=== PATIENT | male | born 1950 | race Caucasian/White ===

== ENCOUNTER 2022-12-17 12:23 | Observation (INO) ==
[2022-12-17] MEDS ORDERED: DILAUDID INJ IVP PRN (15:18)
[2022-12-17] MEDS ORDERED: ZOFRAN INJ 4 MG VIAL IVP PRN (15:18)
[2022-12-17 15:39] VITALS: BMI 27.9
[2022-12-17 15:42] LABS: BASOPHILS # (AUTO) 0.1 X10^3/uL (0.0-0.1); BASOPHILS % (AUTO) 0.8 % (0.2-1.0); EOSINOPHILS # (AUTO) 0.3 x10^3/uL (0.0-0.2); EOSINOPHILS % (AUTO) 3.5 % (0.9-2.9); HEMATOCRIT 38.4 % (42.0-54.0); HEMOGLOBIN 13.4 g/dL (13.5-18.0); LYMPHOCYTES # (AUTO) 1.7 X10^3/uL (1.3-2.9); MEAN CORPUSCULAR HEMOGLOBIN 29.6 pg (27.0-34.0); MEAN CORPUSCULAR VOLUME 84.5 fL (80.0-100.0); MEAN PLATELET VOLUME 8.1 fL (7.4-11.0); MONOCYTES # (AUTO) 0.5 x10^3/uL (0.3-0.8); MONOCYTES % (AUTO) 6.7 % (0.0-13.0); NEUTROPHILS # (AUTO) 5.1 x10^3/uL (2.2-4.8); PLATELET COUNT 179 X10^3/uL (150.0-450.0); RED BLOOD COUNT 4.54 X10^6/uL (4.7-6.0); RED CELL DISTRIBUTION WIDTH 13.7 % (11.6-16.5); WHITE BLOOD COUNT 7.7 X10^3/uL (3.6-10.0)
[2022-12-17 15:54] LABS: ALANINE AMINOTRANSFERASE 46 Units/L (12-78); ALBUMIN 3.8 g/dL (3.4-5.0); ALKALINE PHOSPHATASE 37 Units/L (46-116); ASPARTATE AMINO TRANSFERASE 31 Units/L (15-37); BLOOD UREA NITROGEN 33 mg/dL (7-18); CALCIUM 8.9 mg/dL (8.5-10.1); CARBON DIOXIDE 23.7 mmol/L (21-32); CHLORIDE 102 mmol/L (98-107); COR NA(FOR HYPERGLY) 138 mmol/L (136-145); CREATININE 2.12 mg/dL (0.70-1.30); GLUCOSE 163 mg/dL (65-99); POTASSIUM 4.5 mmol/L (3.5-5.1); SODIUM 136 mmol/L (136-145); TOTAL PROTEIN 7.6 g/dL (6.4-8.2); eGFR NON BLACK RACES 33 (>60)
[2022-12-17] MEDS: NS 1,000 ML IV 1,000 ML IV SCH (16:45)
[2022-12-17] MEDS: FIORICET TAB PO PRN (16:55)
[2022-12-17] MEDS: LIPITOR TAB 20 MG PO SCH (22:02)
[2022-12-17] MEDS: LOPRESSOR TAB 50 MG PO SCH (22:12)
[2022-12-17] MEDS ORDERED: NovoLIN R (or HumuLIN R) SUBCUT PRN (22:54)
[2022-12-18] MEDS: NS 1,000 ML IV 1,000 ML IV SCH ×2 (03:19→19:13)
[2022-12-18] MEDS: FIORICET TAB PO PRN ×2 (04:27→20:40)
[2022-12-18 06:37] LABS: BASOPHILS % (AUTO) 0.5 % (0.2-1.0); EOSINOPHILS # (AUTO) 0.3 x10^3/uL (0.0-0.2); EOSINOPHILS % (AUTO) 3.8 % (0.9-2.9); HEMATOCRIT 36.9 % (42.0-54.0); LYMPHOCYTES # (AUTO) 1.9 X10^3/uL (1.3-2.9); LYMPHOCYTES % (AUTO) 25.2 % (21.0-51.0); MEAN CORPUSCULAR HEMOGLOBIN 29.8 pg (27.0-34.0); MEAN CORPUSCULAR HGB CONC 35.3 g/dL (33.0-35.0); MEAN CORPUSCULAR VOLUME 84.4 fL (80.0-100.0); MEAN PLATELET VOLUME 8.9 fL (7.4-11.0); MONOCYTES # (AUTO) 0.5 x10^3/uL (0.3-0.8); MONOCYTES % (AUTO) 7.1 % (0.0-13.0); NEUTROPHILS # (AUTO) 4.9 x10^3/uL (2.2-4.8); NEUTROPHILS % (AUTO) 63.4 % (42.0-75.0); PLATELET COUNT 173 X10^3/uL (150.0-450.0); RED BLOOD COUNT 4.37 X10^6/uL (4.7-6.0); RED CELL DISTRIBUTION WIDTH 13.3 % (11.6-16.5); WHITE BLOOD COUNT 7.7 X10^3/uL (3.6-10.0)
[2022-12-18 06:47] LABS: ALANINE AMINOTRANSFERASE 39 Units/L (12-78); ALBUMIN 3.5 g/dL (3.4-5.0); ALKALINE PHOSPHATASE 34 Units/L (46-116); ASPARTATE AMINO TRANSFERASE 26 Units/L (15-37); BLOOD UREA NITROGEN 31 mg/dL (7-18); CALCIUM 8.8 mg/dL (8.5-10.1); CARBON DIOXIDE 25.2 mmol/L (21-32); CHLORIDE 104 mmol/L (98-107); COR NA(FOR HYPERGLY) 140 mmol/L (136-145); CREATININE 2.09 mg/dL (0.70-1.30); GLUCOSE 130 mg/dL (65-99); POTASSIUM 4.4 mmol/L (3.5-5.1); SODIUM 139 mmol/L (136-145); TOTAL PROTEIN 7.2 g/dL (6.4-8.2); eGFR NON BLACK RACES 33 (>60)
[2022-12-18] MEDS ORDERED: PATIENT'S HOME MEDICATION (Multivitamin Tablet) PO SCH (09:00)
[2022-12-18] MEDS: LOPRESSOR TAB 50 MG PO SCH ×2 (10:25→20:40)
[2022-12-18] MEDS: ASPIRIN EC 81 MG PO SCH (10:25)
[2022-12-18] MEDS: TAB-A-VITE PO SCH (10:25)
--- NOTE | 2022-12-18 12:07 | MRI ---
EXAM:MRI BRAIN W/O IV contrastHISTORY:intractable headache -COMPARISON:CT 12/11/2022TECHNIQUE:Multiplanar multi-sequence MRI of the brain was obtained without administration of IV contrast.FINDINGS:The cerebellar tonsils are normally positioned. Pituitary gland is normal in size. The cerebral ventricles are normal in size.No areas of restricted diffusion. A few punctate foci of increased T2 signal are seen in the cerebellum and supratentorial white matter. These are probably minimal chronic small-vessel ischemic changes. No evidence of intracranial hemorrhage.Paranasal sinuses and mastoid air cells appear clear.IMPRESSION:Minimal chronic small-vessel ischemic changes are suspected without evidence of acute intracranial abnormality.THIS IS AN ELECTRONICALLY VERIFIED FINAL REPORT12/18/2022 12:03 PM - Electronically signed by Sheldon Carrion MD
--- NOTE | 2022-12-18 12:52 | DR.UPDATE ---
H&P Update Prescription drug monitoring program results: PDMP reviewed and no concerns identified H&P Reviewed: Yes Any changes to H&P?: Yes Changes noted:: WAS ADMITTED TO THE HOSPITAL OBSERVATION STATUS FOR FURTHER EVALUATION AND TREATMENT OF INTRACTABLE HEADACHE. PATIENT REPORTS THAT HIS HEADACHE INITIALLY STARTED 2-3 WEEKS AGO AND HAS BEEN PERSISTENT. HE RATED PAIN A 7/10 ON ADMISSION AND DESCRIBED IT AT [facility] AND [facility]. HE DID HAVE AN OUTPATIENT BRAIN CT WITHOUT CONTRAST WHICH ONLY REVEALED CHRONIC SMALL VESSEL ISCHEMIC CHANGES. HE WAS PRESCRIBED AUGMENTIN 875/125MG BID LAST WEEK FOR ACUTE SINUSITIS. HE BEGAN TAKING IT ON 12/14/22. HE HAS TAKEN TYLENOL AND IBUPROFEN AT HOME WITHOUT IMPROVEMENT IN HEADACHE. HIS PMH INCLUDES: DM II, PROSTATE CANCER, ANGINA, ANGIOPLASTY/STENTS, HERNIA REPAIR. ON ARRIVAL TO THE HOSPITAL, HIS VITALS WERE: 98.0-62-20-98%-170/88. LABS WERE OBTAINED. WBC 7.7, RBC 4.54, HGB 13.4, HCT 38.4, PLT COUNT 179, SODIUM 136, POTASSIUM 4.5, CHLORIDE 102, CARBON DIOXIDE 23.7, BUN 33, CREATININE 2.12, GLUCOSE 163, CALCIUM 8.9, AST 31, ALT 46, ALK PHOS 37, TOTAL PROTEIN 7.6, ALBUMIN 3.8. BRAIN MRI WAS OBTAINED AND REVEALED: The cerebellar tonsils are normally positioned. Pituitary gland is normal in size. The cerebral ventricles are normal in size.No areas of restricted diffusion. A few punctate foci of increased T2 signal are seen in the cerebellum and supratentorial white matter. These are probably minimal chronic small-vessel ischemic changes. No evidence of intracranial hemorrhage. Paranasal sinuses and mastoid air cells appear clear. HE WAS STARTED ON NORMAL SALINE AT 75 ML/HR, DILAUDID 1MG IV Q4H PRN PAIN, FIORICET 2 TABS Q8H PRN PAIN, LOVENOX 30MG SC DAILY, OTBS ACHS, HUMULIN R SLIDING SCALE, ZOFRAN 4MG IV Q4H PRN NAUSEA. HIS HOME MEDICATIONS OF AUGMENTIN, ASPIRIN, LIPITOR, TRICOR, LOPRESSOR, AND MULTIVITAMINS WERE RESUMED. OTHERWISE, WE WILL FOLLOW UP WITH AM LABS AND CONTINUE TO MONITOR. TIME SPENT ON CLINICAL ASSESSMENT, REVIEWING LABS AND IMAGING, DECISION MAKING, AND DOCUMENTATION GREATER THAN 75 MINUTES. ADMITTING DX: INTRACTABLE HEADACHE, ACUTE RENAL INSUFFICIENCY, HTN, HYPERLIPIDEMIA. Patient was examined?: Yes
[2022-12-18] MEDS: LOVENOX INJ 30 MG SYR SC SCH (14:18)
[2022-12-18] MEDS: AUGMENTIN 875 MG/125 MG TAB PO SCH ×2 (14:18→20:41)
[2022-12-18] MEDS ORDERED: SNACK - Diabetic Appropriate PO SCH (20:00)
[2022-12-18] MEDS: LIPITOR TAB 20 MG PO SCH (20:40)
[2022-12-18] MEDS ORDERED: TRICOR TAB 48 MG PO SCH (21:00)
[2022-12-18 23:56] VITALS: RESP 20
[2022-12-19] MEDS: NS 1,000 ML IV 1,000 ML IV SCH (05:40)
[2022-12-19 05:53] LABS: BASOPHILS % (AUTO) 0.6 % (0.2-1.0); EOSINOPHILS # (AUTO) 0.2 x10^3/uL (0.0-0.2); EOSINOPHILS % (AUTO) 3.8 % (0.9-2.9); HEMATOCRIT 35.5 % (42.0-54.0); HEMOGLOBIN 12.7 g/dL (13.5-18.0); LYMPHOCYTES # (AUTO) 1.9 X10^3/uL (1.3-2.9); LYMPHOCYTES % (AUTO) 28.9 % (21.0-51.0); MEAN CORPUSCULAR HEMOGLOBIN 30.2 pg (27.0-34.0); MEAN CORPUSCULAR HGB CONC 35.8 g/dL (33.0-35.0); MEAN CORPUSCULAR VOLUME 84.5 fL (80.0-100.0); MEAN PLATELET VOLUME 8.8 fL (7.4-11.0); MONOCYTES # (AUTO) 0.5 x10^3/uL (0.3-0.8); MONOCYTES % (AUTO) 7.3 % (0.0-13.0); NEUTROPHILS # (AUTO) 3.8 x10^3/uL (2.2-4.8); NEUTROPHILS % (AUTO) 59.4 % (42.0-75.0); PLATELET COUNT 162 X10^3/uL (150.0-450.0); RED CELL DISTRIBUTION WIDTH 13.7 % (11.6-16.5); WHITE BLOOD COUNT 6.4 X10^3/uL (3.6-10.0)
[2022-12-19 06:14] LABS: ALBUMIN 3.3 g/dL (3.4-5.0); CALCIUM 8.3 mg/dL (8.5-10.1); CARBON DIOXIDE 22.1 mmol/L (21-32); COR CA(FOR HYPOALB) 8.9 mg/dL (8.5-10.1); CREATININE 2.08 mg/dL (0.70-1.30); POTASSIUM 3.7 mmol/L (3.5-5.1); TOTAL PROTEIN 6.8 g/dL (6.4-8.2)
[2022-12-19] MEDS: TAB-A-VITE PO SCH (09:07)
[2022-12-19] MEDS: AUGMENTIN 875 MG/125 MG TAB PO SCH (09:07)
[2022-12-19] MEDS: ASPIRIN EC 81 MG PO SCH (09:07)
[2022-12-19] MEDS: LOVENOX INJ 30 MG SYR SC SCH (09:08)
[2022-12-19] MEDS: LOPRESSOR TAB 50 MG PO SCH (09:08)
[2022-12-19 09:55] VITALS: BP 159/86; PULSE 75; TEMP 98.3; O2SAT 98
== END 2022-12-19 11:35 | disposition home or self-care (01) ==
LOC: MED/SURG
PROVIDERS: ADMIT Internal Medicine; ATTEND Internal Medicine
DX: I10 Essential (primary) hypertension; R51.9 Headache, unspecified; N28.9 Disorder of kidney and ureter, unspecified; E78.2 Mixed hyperlipidemia; E11.65 Type 2 diabetes mellitus with hyperglycemia